=== PATIENT | male | born 1975 | race Caucasian/White ===

== ENCOUNTER 2021-01-29 20:02 | Emergency (ER) | payer OTHER ==
[~2021-01-29] VITALS: Ht 188 cm; Wt 106.6 kg
[2021-01-29] MEDS ORDERED: HYDRALAZINE HCL50 MG (20:16)
[2021-01-29] MEDS ORDERED: LOSARTAN POTASS50 MG PO (22:43)
== END 2021-01-29 22:45 | disposition home or self-care (01) ==
LOC: ER 20:02
DX: I16.1 Hypertensive emergency (principal); I10 Essential (primary) hypertension; R51.9 Headache, unspecified; F41.8 Other specified anxiety disorders

== ENCOUNTER 2023-10-19 07:46 | Outpatient (CLI) | payer OTHER ==
[~2023-10-19 07:46] MED LIST: HYDRALAZINE HCL50 MG; LOSARTAN POTASS50 MG PO
== END 2023-10-19 08:00 | disposition home or self-care (01) ==
LOC: SONOGRAMA 07:46
PROVIDERS: ATTEND Internal Medicine Nephrology
DX: N18.2 Chronic kidney disease, stage 2 (mild) (principal); I10 Essential (primary) hypertension